=== PATIENT | female | born 1995 | race African-American/Black ===

== ENCOUNTER 2025-08-10 16:45 | Emergency (ER) | payer OTHER, SELFPAY ==
--- NOTE | 2025-08-10 16:58 | ED_ITS ---
HPI - Female Genitourinary General Chief complaint: Urogenital-Female Stated complaint: urinary irritation Time Seen by Provider: 08/10/25 17:04 Source: patient, RN notes reviewed and old records reviewed Mode of arrival: ambulatory Limitations: no limitations History of Present Illness HPI Narrative: 29-year-old female presents to the [facility] with 2 day history of urinary frequency, urgency and burning. Did take azo. Also reports abnormal smell hand vaginal discharge she describes as being very clumpy. States she has had similar symptoms when she has been diagnosed with a yeast infection and bacteria l vaginitis. Vaginal complaints for approximately 1 week. With taken Monistat last menstrual period was 22 July. Denies any concerns for STIs Onset (ago): day(s) (2) Related Data Allergies Allergy/AdvReac Type Severity Reaction Status Date / Time No Known Allergies Allergy Verified 08/10/25 17:25 Review of Systems Review of Systems: All systems reviewed & are unremarkable except as noted in HPI and below Constitutional: Constitutional: Reports no additional constitutional complaints ENT: Reports system reviewed and no additional complaints, except as documented Cardiovascular: Cardiovascular: Reports no additional cardiovascular complaints, Denies chest pain and Denies dyspnea Respiratory: Respiratory: Reports no additional respiratory complaints, Denies chest congestion, Denies cough and Denies dyspnea Genitourinary: Genitourinary: Reports as per HPI Musculoskeletal: Musculoskeletal: Reports no additional musculoskeletal complaints Integumentary/Breasts: Skin/Breast: Reports system reviewed and no additional complaints, except as docu PMFSH Comments At the time of my signature, I reviewed and agree with the nursing past medical, surgical, social, and family history. There is no relevant family history pertinent to the patient complaint. Exam Const: General: cooperative, healthy appearing, comfortable, no acute distress, well developed, alert and well nourished Nutritional Appearance: well nourished Orientation/consciousness: patient oriented x3 Limitations: no limitations HENMT: Head: normal to inspection Eyes: General: appearance normal, both eyes and all related structures Alignment and Position: alignment normal Neck: Neck: normal visual inspection, full ROM, no lymphadenopathy and no meningeal signs Chest: Chest palpation & inspection: normal inspection of the chest Resp: Effort & Inspection: normal respiratory effort and able to speak in complete sentences Auscultation: clear to auscultation bilaterally, no crackles, no rales, no rhonchi and no wheezes Cardio: Rate: regular rate GI: GI Palp: No abdominal tenderness : General: Yes no CVA tenderness Skin: General skin exam: normal color and no rashes or lesions noted Neuro: General: patient oriented x3, gait normal, moves all extremities and no meningeal signs Cognition (Neuro): normal cognition Speech: normal speech Gait exam (Neuro): Normal gait present Extrem: General: normal to inspection, full ROM, capillary refill normal and normal gait Psych: Appearance: grossly normal and well kempt Mental Status: mental status grossly normal Speech and movement: Normal speech and movement present and Clear speech present Affect: normal affect Attitude: cooperative Course Course Level of Care: Express Care Visit Vital Signs Vital signs: Vital Signs Temperature 97.8 F 08/10/25 16:59 Pulse Rate 86 08/10/25 16:59 Respiratory Rate 18 08/10/25 16:59 Blood Pressure 108/64 08/10/25 16:59 Pulse Oximetry 100 08/10/25 16:59 Oxygen Delivery Room Air 08/10/25 16:59 Temperature 97.8 F 08/10/25 16:59 Pulse Rate 86 08/10/25 16:59 Respiratory Rate 18 08/10/25 16:59 Blood Pressure 108/64 08/10/25 16:59 Pulse Oximetry 100 08/10/25 16:59 Oxygen Delivery Room Air 08/10/25 16:59 reviewed MDM MDM Narrative Medical decision making narrative: patient sitting in exam room. Patient is nontoxic vitals stable. Patient presents with urinary symptoms, vaginal issues. Unable to run urine due to taking azo. Will start an antibiotic due to symptoms as well as sent for culture. Will treat for BV and yeast. Patient is preferring to self swab. Discharge instructions reviewed with patient, as well as provided in writing per nursing staff. The instructions also include specific and strict return/GO TO THE ER as well as f/u information. All questions have been answered, and the patient deny any further questions with discharge and discharge plan. Some parts of this dictation were generated by voice recognition software and may contain typographical and/or grammatical inaccuracies. Differential Diagnosis Differential Diagnosis: Differential diagnostic considerations for female urogenital? issues include urinary tract infection, bacterial vaginosis, cervicitis, ovarian cyst, vaginitis, STI exposure, ovarian torsion, ectopic , cyst of Bartholin?s gland, cystitis, dysmenorrhea.?? Discharge Plan Discharge Clinical Impression: Dysuria, Bacterial vaginosis Patient Disposition: Home Condition: Stable Instructions: Bacterial Vaginosis (ED), Dysuria (ED) Additional Instructions: Increased water intake Take Tylenol as needed for pain Take antibiotic as prescribed We were unable to dip your urine here in clinic, You have been prescribed an antibiotic. Your urine will be sent to our lab for a culture. If at that time a bacteria grows that is not covered by the antibiotic prescribed you will be notified. Follow-up with primary care follow-up with gynecologist provider For new or worsening symptoms go directly to the emergency room Patient Language: Faroese Prescriptions: New cephalexin 500 mg capsule 500 mg PO Q12H Qty: 10 0RF metronidazole [Vandazole] 0.75 % (37.5mg/5 gram) gel 1 appful vaginal DAILY 5 Days Qty: 70 0RF fluconazole 150 mg tablet 150 mg PO ONCE Qty: 1 0RF Rx Instructions: as a single dose Follow-up/Referrals: PHYSICIAN,ROSE GROWER [Primary Care Provider, Internal Medicine] Stand Alone Forms: Work/School Release IP Time of Disposition: 17:28
[2025-08-10 16:59] VITALS: BP 108/64; PULSE 86; RESP 18; TEMP 36.6; O2SAT 100
== END 2025-08-10 17:32 | disposition home or self-care (01) ==
PROVIDERS: Emergency Provider Nurse Practitioner
DX: R30.0 Dysuria (principal); N76.0 Acute vaginitis
CPT/HCPCS: 87070; 87077; 87086; 87147; 87186; 87798; 99203; G0463